=== PATIENT | female | born 1975 | race Caucasian/White ===

== ENCOUNTER 2019-04-02 14:13 | Emergency (ER) | payer SELFPAY ==
[~2019-04-02] VITALS: Ht 157.5 cm; Wt 83.9 kg
[2019-04-02 14:34] VITALS: BP 134/89
--- NOTE | 2019-04-02 14:40 | NUR ---
Patient ambulated to bed 4. RN evaluating patient at bedside.
--- NOTE | 2019-04-02 14:45 | NUR ---
PT BIB SELF TO THE ED WITH THE CHIEF C/O DIZZINESS AND TINGLING PAIN ON FOREHEAD SINCE YESTERDAY. VISITED PCP TODAY, DISCHARGED WITH MECLIZINE. TOOK MECLIZINE AROUND 1300. NO RELIEF. DENIES N/V/D. REPORTS LITTLE BLURRY VISION. DENIES FEVER. HX OF HTN. STATES PAIN OF 2/10.
--- NOTE | 2019-04-02 15:35 | NUR ---
DR FLANAGAN MADE AWARE OF BP.
--- NOTE | 2019-04-02 15:37 | NUR ---
PT BEING EVALUATED BY ER AT THIS TIME.
[2019-04-02] MEDS ORDERED: ENALAPRILAT 2.5 MG/2 ML VIAL IVP ONE (15:45)
[2019-04-02] MEDS ORDERED: hydrALAZINE 20 MG/ML VIAL IVP ONE (15:45)
[2019-04-02 16:32] LABS: BASOPHILS % (AUTO) 0.2 % (0.0-2.0); EOSINOPHILS % (AUTO) 0.2 % (0.0-4.0); HEMATOCRIT 38.3 % (36-48); HEMOGLOBIN 12.5 g/dL (12.0-16.0); LYMPHOCYTES # (AUTO) 2.5 K/uL (2.5-16.5); LYMPHOCYTES % (AUTO) 26.5 % (20.5-51.1); MEAN CORPUSCULAR HEMOGLOBIN 27 pg (27-31); MEAN CORPUSCULAR HGB CONC 33 g/dL (33-37); MEAN CORPUSCULAR VOLUME 81.7 fL (80-94); MONOCYTES # (AUTO) 0.5 K/uL (0.8-1.0); MONOCYTES % (AUTO) 5.4 % (1.7-9.3); NEUTROPHILS # (AUTO) 6.3 K/uL (1.8-7.7); NEUTROPHILS % (AUTO) 67.7 % (42.2-75.2); PLATELET COUNT (AUTO) 467 K/uL (140-450); RED BLOOD CELL COUNT(AUTO) 4.69 MIL/uL (4.20-5.40); WHITE BLOOD COUNT (AUTO) 9.4 K/uL (4.8-10.8)
[2019-04-02 16:44] LABS: ANION GAP 15.8 (8-16); CARBON DIOXIDE 25.2 mmol/L (21-32); CREATININE 0.8 mg/dL (0.6-1.3)
[2019-04-02 16:51] LABS: ALBUMIN 3.5 g/dL (3.4-5.0); TOTAL BILIRUBIN 0.3 mg/dL (0.0-1.0)
[2019-04-02 18:04] VITALS: BP 148/105
--- NOTE | 2019-04-02 18:04 | NUR ---
Patient discharged with v/s stable. Written and verbal after care instructions given and explained. Patient alert, oriented and verbalized understanding of instructions. Ambulatory with steady gait. All questions addressed prior to discharge. ID band removed. Patient advised to follow up with PMD. Rx of NORVASAC AND LISINOPRIL given. Patient educated on indication of medication including possible reaction and side effects. Opportunity to ask questions provided and answered. Addendum: 04/02/19 at 1830 by SERINA Pt discharged by JESSA FINCH
--- NOTE | 2019-04-02 18:05 | NUR ---
Dr. Heard evaluating patient at bedside.
== END 2019-04-02 18:04 | disposition home or self-care (01) ==
LOC: MED 14:13
DX: I10 Essential (primary) hypertension (principal); R42 Dizziness and giddiness
CPT/HCPCS: 36415; 80053; 84484; 85025; 96374; 96375; 99283; J0360; J3490

== ENCOUNTER 2019-04-04 08:50 | Emergency (ER) | payer SELFPAY ==
[~2019-04-04] VITALS: Ht 157.5 cm; Wt 83.9 kg
[2019-04-04 09:00] VITALS: BP 157/120
--- NOTE | 2019-04-04 09:00 | NUR ---
PATIENT AMBULATED TO BED 12
--- NOTE | 2019-04-04 09:02 | NUR ---
PT PLACED ON CARIDAC MONITOR
--- NOTE | 2019-04-04 09:03 | NUR ---
43 y female bib self c/o tachycardia. hr sitting down is 122. walking 138. was seen here on friday for dizziness. patient states she feels tired everytime she moves. [id number]. denies cp, blurry vision, sob, numbness or dizziness at this time. no edema noted. bed is dwon, locked, bed rail x 1, ermd to see pt. pmh- htn, hx cardiac
[2019-04-04] MEDS ORDERED: AMLO5TAB PO (09:07)
[2019-04-04] MEDS ORDERED: LISI-420 PO (09:07)
--- NOTE | 2019-04-04 09:07 | NUR ---
DR LYNCH AT BEDSIDE
[2019-04-04] MEDS ORDERED: NACL 0.9% 1,000 ML IV ONE (09:10)
--- NOTE | 2019-04-04 10:20 | NUR ---
VSS AT THIS TIME. PT STATES SHE WILL BE TAKING HER BP MEDICATIONS. DR LYNCH NOTIFIED
--- NOTE | 2019-04-04 10:44 | NUR ---
WALKED WITH PATIENT TO BATHROOM. PATIENT REPORTS MILD DIZZINESS AND INCREASED PALPITATIONS WITH GETTING UP AND WALKING BUT STEADY GAIT NOTED.
[2019-04-04 11:42] VITALS: BP 126/96
--- NOTE | 2019-04-04 11:42 | NUR ---
Patient discharged with v/s stable. Written and verbal after care instructions given and explained. Patient verbalized understanding. Ambulatory with steady gait. All questions addressed prior to discharge. Advised to follow up with PMD regarding palpatations.
== END 2019-04-04 11:42 | disposition home or self-care (01) ==
LOC: MED 08:50
DX: R00.2 Palpitations (principal); R00.0 Tachycardia, unspecified; R42 Dizziness and giddiness; I10 Essential (primary) hypertension; Z79.899 Other long term (current) drug therapy
CPT/HCPCS: 81002; 81025; 93005; 96360; 99283; J7030